=== PATIENT | male | born 1995 | race American Indian/Alaskan Native ===

== ENCOUNTER 2021-06-10 10:47 | Emergency (ER) | payer SELFPAY ==
[2021-06-10 10:58] VITALS: BP 141/94
[2021-06-10] MEDS ORDERED: KETOROLAC 60 MG/2 ML INJ IM ONE (11:09)
[2021-06-10] MEDS ORDERED: KETOROLAC 30 MG/1 ML INJ ONE (11:15)
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
== END 2021-06-10 11:37 | disposition home or self-care (01) ==
LOC: ED 10:47
DX: M54.50 Low back pain, unspecified (principal); V89.2XXA Person injured in unspecified motor-vehicle accident, traffic, initial encounter; Y93.89 Activity, other specified; Y92.89 Other specified places as the place of occurrence of the external cause; Y99.8 Other external cause status
CPT/HCPCS: 96372; 99282; J1885

== ENCOUNTER 2021-11-20 08:41 | Emergency (ER) | payer SELFPAY ==
[2021-11-20 09:19] VITALS: BP 145/95
[2021-11-20] MEDS ORDERED: HYDROcodone/ACETAMINOPHEN 10-325MG TAB PO ONE (10:57)
[2021-11-20] MEDS ORDERED: TETANUS,DIPH,PERTUSS(ACELL) VACCINE 0.5 ML SYRINGE IM ONE (10:57)
--- NOTE | 2021-11-20 11:31 | XRay Report ---
Left hand 3 views INDICATION: Laceration FINDINGS: MCP joint and IP joints appear normal. No radiopaque foreign body is definitely seen. Signer Name: Selvin Still MD Signed: 11/20/2021 11:27 AM Workstation Name: [id number]
--- NOTE | 2021-11-20 13:12 | Emergency Department Report ---
ED Laceration HPI - HPI Chief Complaint: Wound/Laceration Stated Complaint: LT HAND/LAC Time Seen by Provider: 11/20/21 10:56 Occurred When: Today Location: Upper Extremity Severity: mild Tetanus Status: Not up to Date Laceration Symptoms: Yes Pain, No Foreign Body Sensation, No Numbness, No Weakness Other History: This is a 26-year-old male nontoxic, well nourished in appearance, no acute signs of distress presents to the ED with c/o of left hand laceration. Patient stated that he cut himself accidentally by a glass today prior to arrival. Patient denies decreased sensation or range of motion. Patient stated bleeding is under control. Denies any numbness, tingling, fever, chills, nausea, vomiting, chest pain, shortness of breath, headache or stiff neck. Patient denies any allergies to significant past medical history. Patient is that he is not up-to-date with tetanus. ED Review of Systems ROS: Stated complaint: LT HAND/LAC Other details as noted in HPI Comment: All other systems reviewed and negative Constitutional: denies: chills, fever Eyes: denies: eye pain, eye discharge, vision change ENT: denies: ear pain, throat pain Respiratory: denies: cough, shortness of breath, wheezing Cardiovascular: denies: chest pain, palpitations Endocrine: no symptoms reported Gastrointestinal: denies: abdominal pain, nausea, diarrhea Genitourinary: denies: urgency, dysuria Musculoskeletal: denies: back pain, joint swelling, arthralgia Skin: denies: rash, lesions Neurological: denies: headache, weakness, paresthesias Psychiatric: denies: anxiety, depression Hematological/Lymphatic: denies: easy bleeding, easy bruising ED Past Medical Hx - Past Medical History Previous Medical History?: No - Surgical History Past Surgical History?: No - Social History Smoking Status: Never Smoker - Medications Home Medications: Home Medications Medication Instructions Recorded Confirmed Last Taken Type Cyclobenzaprine [Flexeril] 10 mg PO TID PRN 15 Days #30 tab 06/10/21 Unknown Rx Ibuprofen [Motrin] 800 mg PO Q8HR PRN 15 Days #30 06/10/21 Unknown Rx tablet Naproxen 500 mg PO Q8H PRN #20 tab 11/20/21 Unknown Rx Sulfamethoxazole/Trimethoprim 1 each PO BID #14 tab 11/20/21 Unknown Rx [Bactrim DS TAB] Laceration Physical Exam - Exam General: Vital signs noted. No distress. Alert and acting appropriately. Wound Length (cm): 3 (Superficial left lateral hand) Laceration Location: Upper Extremity Laceration Exam: Yes Normal Distal CMS, No Foreign Body, No Exposed Tendon, Vessel, or Nerve, No Tendon Injury ED Course Vital Signs 11/20/21 09:16 Temperature 98.9 F Pulse Rate 77 Respiratory 18 Rate Blood Pressure 145/95 O2 Sat by Pulse 100 Oximetry - Reevaluation(s) Reevaluation #1: 11/20/21 13:12 Patient is speaking in full sentences with no signs of distress noted. - Laceration /Wound Repair Left Hand Wound Location: upper extremity Wound Length (cm): 3 Wound's Depth, Shape: superficial Wound Explored: clean Irrigated w/ Saline (ccs): 40 Betadine Prep?: Yes Anesthesia: 1% Lidocaine Volume Anesthetic (ccs): 3 Wound Repaired With: sutures Suture Size/Type: 5:0, proline Number of Sutures: 4 Layer Closure?: No Sterile Dressing Applied?: Yes Progress: Under sterile field, I used Betadine to clean the area. I then used 40 mL of normal saline to flush the area. I then used 1% lidocaine plain and injected 3 mL to the wound. I then used a 5-0 Prolene to suture the laceration. Number of stitches 4. I then applied a sterile 4 x 4 with tape. Minimal bleeding noted but is under control. Patient tolerated procedure well with no signs of distress. ED Medical Decision Making - Radiology Data [facility] [address] [place] [address] XRay Report Signed Patient: CARLOTTA BARKER JR R#: [id number] : 1995 Acct:[id number] Age/Sex: 26 / M ADM Date: 11/20/21 Loc: ED Attending Dr: Ordering Physician: АЛЕКСАНДР LUGO NP Date of Service: 11/20/21 Procedure(s): XR hand 3+V LT Accession Number(s): [id number] cc: АЛЕКСАНДР LUGO NP Fluoro Time In Minutes: Left hand 3 views INDICATION: Laceration FINDINGS: MCP joint and IP joints appear normal. No radiopaque foreign body is definitely seen. Signer Name: Selvin Still MD Signed: 11/20/2021 11:27 AM Workstation Name: [id number] Transcribed By: CW Dictated By: DIONNE STILL MD Electronically Authenticated By: DIONNE STILL MD Signed Date/Time: 11/20/211126 DD/ 25 TD/TT: - Medical Decision Making This is a 26-year-old male that presents with laceration. Patient is stable and was examined by me. The laceration suturing has been performed and has been performed and patient tolerated well. A sterile dressing has been applied. Patient was educated on proper wound care. Patient is discharged with Bactrim. Patient was instructed to return in 10 days for suture removal. Patient was instructed to refer to Follow-up with a primary care doctor in 3-5 days or if symptoms worsen and continue return to emergency room as soon as possible. At time of discharge, the patient does not seem toxic or ill in appearance. No acute signs of distress noted. Patient agrees to discharge treatment plan of care. No further questions noted by the patient. Critical care attestation.: If time is entered above; I have spent that time in minutes in the direct care of this critically ill patient, excluding procedure time. ED Disposition Clinical Impression: Hand laceration Qualifiers: Encounter type: initial encounter Foreign body presence: without foreign body Laterality: left Qualified Code(s): S61.412A - Laceration without foreign body of left hand, initial encounter Disposition: HOME / SELF CARE / HOMELESS Is pt being admited?: No Does the pt Need Aspirin: No Condition: Stable Instructions: Laceration Care, Adult Additional Instructions: Follow-up with a primary care doctor in 3-5 days or if symptoms worsen and continue return to emergency room as soon as possible. Return in 10 days for suture removal. Prescriptions: Sulfamethoxazole/Trimethoprim [Bactrim DS TAB] 1 each PO BID #14 tab Naproxen 500 mg PO Q8H PRN #20 tab PRN Reason: Pain , Severe (7-10) Referrals: SANDOR YEAGER MD [Referring] - 3-5 Days TUYET SALEH MD [Staff Physician] - 3-5 Days Time of Disposition: 13:52
== END 2021-11-20 15:13 | disposition home or self-care (01) ==
LOC: ED 08:41
DX: S61.412A Laceration without foreign body of left hand, initial encounter (principal); W25.XXXA Contact with sharp glass, initial encounter; Y93.89 Activity, other specified; Y92.89 Other specified places as the place of occurrence of the external cause; Y99.8 Other external cause status
CPT/HCPCS: 90471; 90715; 99283